=== PATIENT | female | born 1975 | race Caucasian/White ===

== ENCOUNTER 2019-03-21 06:30 | Day surgery (SDC) | payer OTHER ==
[~2019-03-21] VITALS: Ht 162.6 cm; Wt 72.1 kg
--- NOTE | ~2019-03-21 | OR ---
[facility] [address], [place] [address] Draft DATE OF OPERATION: 03/21/2019 SURGEON: Kashif Musa MD PREOPERATIVE DIAGNOSES: 1. 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 2. Chronic sinusitis. 3. Turbinate hypertrophy with nasal obstruction. PROCEDURES: 1. Tympanoplasty without ossicular reconstruction of the right ear. 2. Left limited ethmoidectomy 74566 or partial ethmoidectomy. 3. Submucous resection of the turbinate 22649-65. INDICATIONS: This 43-year-old has had sinus surgery in the past. 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 Both of these things were amenable to surgery as these scar bands would lateralize the middle turbinates and the patient also had hypertrophy of the inferior turbinates with recurrent nasal obstruction following her sinus surgery years ago. DESCRIPTION OF PROCEDURE: The patient was placed in the supine position, had an orotracheal intubation, was placed under general anesthesia. The right ear was marked in the preop area. Then, injecting the postauricular sulcus with about 5 mL of 1% lidocaine with 1:100,000 epinephrine that was also some injected into the meatus laterally of the ear. Then, after routine prep and drape using the microscope, another 1 or 2 mL was injected in the canal until blanching of the tympanic membrane was observed. Another 3 or 4 mL of 0.5% Marcaine with 1:200,000 epinephrine was placed in the postauricular sulcus to help with postop pain relief. Incision was then made with the needle cautery using both cutting and coagulation to incise down to the periosteum and the Butler 57 and 72 blades were used to make the incisions on the flap on the inside making a general configuration of the H with back elevation and then the postauricular dissection was carried into that pulling the ear forward with a Martha drain threaded in the ear canal, but out the postauricular incision. This was only the retraction the ear had, so that the tympanic membrane perforation could be well visualized. Temporalis fascia was harvested. PATIENT NAME: MARGARITA CORTEZ OPERATIVE REPORT DATE OF : 73 REPORT #: [id number] PHYSICIAN: KASHIF MUSA MD PCP: FAVIAN BELTRAN DO REPORT IS CONFIDENTIAL AND NOT TO BE RELEASED WITHOUT AUTHORIZATION [facility] [address], [place] [address] Draft Approximately, a 1.2 cm piece was harvested and this was pressed out and allowed to air dry. Then, the perforation was freshened with the Ascencio needle making punctures all the way around, removing the mucosa with cup forceps, then elevating the tympanomeatal flap with a separator and a #20 suction. A sickle knife was used to incise into the middle ear mucosa approximately 10 o'clock in the anatomic position. The annulus elevator was then used to lift the annulus out of its sulcus going inferiorly turning the tympanic membrane anteriorly. The ossicular reflex was present. The malleus appeared to be un-fibrosed and the SI joint moved as it should. Then, the graft was taken and threaded into the middle ear, pulling it anterior to the handle of the malleus out the perforation. Gelfoam soaked with Ciprodex placed into the perforation in the anteroinferior edge and then once the graft was pulled through, it was tucked back in between the Gelfoam and the medial surface of the tympanic membrane. This was done all the way around, more Gelfoam placed deep to that, so everything was held up against the medial surface of the tympanic membrane. The tympanomeatal flap was returned to its original position, packed into place with more Gelfoam, Ciprodex, and the ear was returned to its original position, 5-0 PDS used to sew it subcutaneously. Then, a running interlocking stitch of 5-0 fast absorbing gut was used. The Steri-Strips and Mastisol applied. The skin edge was returned as close as possible to the cut edge in the ear canal and a single piece of silastic sheeting was placed on that posterior edge, which will be retrieved in the office. More Gelfoam used and then a cotton ball loosely placed into the wali cavum soaked with bacitracin ointment. Mastoid dressing was then applied, and with the patient in the same position, nasal surgery proceeded. Injecting inferior middle turbinates with about 4 mL, 1 mL per each side of 1% lidocaine with 1:100,000 epinephrine, another 1 or 2 mL Marcaine was used to help with postop pain. Stab incisions were made into the inferior turbinates, lifting up the mucoperiosteum with the caudal dissection tool. The turbinate bone was then fractured, avulsed in piece by piece fashion removing from the airway. Photographs were taken endoscopically, preoperatively, intraoperatively, and postop as the Kerrison forceps was used to cut some of that lateral edge of the middle turbinate and the microdebrider and a Thru-Cut punch were used to remove scar bands, there were several present on either side. Some of the posterior ethmoids are remnant and the anterior ethmoids bone superiorly was removed with a Thru-Cut ethmoid punch and then after making sure everything was wide open, medializing the middle turbinates, NasoPore was placed on either side to help keep the bands were forming and re-lateralization of the middle turbinate. Estimated blood loss is 50 mL from the sinus surgery and the ear surgery may be even 1 mL. The patient went to recovery room in good condition. There were no complications. Kashif Musa MD PATIENT NAME: DANAMARGARITA OPERATIVE REPORT DATE OF : 73 REPORT #: [id number] PHYSICIAN: KASHIF MUSA MD PCP: FAVIAN BELTRAN DO REPORT IS CONFIDENTIAL AND NOT TO BE RELEASED WITHOUT AUTHORIZATION [facility] [address] [place] [address] Vance Tang [address] Draft [facility] /[id number] Copies: ~ PATIENT NAME: MARGARITA CORTEZ OPERATIVE REPORT DATE OF : 73 REPORT #: [id number] PHYSICIAN: KASHIF MUSA MD PCP: FAVIAN BELTRAN DO REPORT IS CONFIDENTIAL AND NOT TO BE RELEASED WITHOUT AUTHORIZATION
[~2019-03-21 06:30] MED LIST: PRISTIQ ER50 MG PO; SYNTHROID88 MCG PO
[2019-03-21] MEDS ORDERED: CLARITIN10 M2 PO (06:58)
[2019-03-21] MEDS ORDERED: MULTI VITAMIN1 EACH PO (06:58)
[2019-03-21] MEDS ORDERED: BENADRYL ALLERG25 MG PO (06:58)
[2019-03-21] MEDS ORDERED: MELATONIN5 M2 PO (06:58)
--- NOTE | 2019-03-21 08:01 | NUR ---
PATIENT RESTING BACK IN BED, LORA HUGGER PLACED ON WARM. CALL LIGHT WITHIN REACH. ANSWERED QUESTIONS AND CONCERNS. NO OTHER NEEDS AT THIS TIME.
--- NOTE | 2019-03-21 12:55 | NUR ---
03/21/19 1255 Sheets,Aby 1244 PT ARRIVED TO PACU NONAROUSABLE TO PAINFUL STIMULI, RESP EVEN AND UNLABORED BUT SHOLLOW. PT MAINTAINING OWN AIRWAY. 1245 VSS. 1253 O2 DECREASED TO 6L.
--- NOTE | 2019-03-21 15:34 | NUR ---
UPON ENTERING ROOM, HAD REMOVED GAUZE SATURATED WITH BLOOD AND WAS ATTEMPTING TO PLACE NEW GAUZE TO NOSE WITH TAPE. EDUCATED PATIENT AND FAMILY TO ALLOW NURSING TO CARE FOR GAUZE, TO CLOSELY MONITOR BLEEDING. REINFORCED WITH GAUZE. NEW GAUZE SATURATED WITHIN 5 MINUTES, DISCUSSED WITH CHARGE NURSE. APPLIED PRESSURE TO NOSE WITH NEW GAUZE, HELD PRESSURE AND BLEEDING APPEARS TO HAVE SLOWED. PROVIDED PATIENT WITH YANKER TO SUCK SECRETIONS FROM FRONT OF MOUTH WITH INSTRUCTION NOT TO GO PAST TEETH. PATIENT VERBALIZED UNDERSTANDING ALONG WITH . PATIENT HAS STOPPED ROCKING HEAD BACK AND FORTH WITH COUGHING UP SMALL AMOUNTS OF BLOOD. PATIENT STATES " THIS IS CALMING AND A GREAT DISTRACTION."
--- NOTE | 2019-03-21 16:18 | NUR ---
PATIENT RESTING BACK IN BED. PROVIDED WITH WARM BLANKET,AND ICE CHIPS. AT BEDSIDE. GAUZE APPEARS TO BE SATURATED WITH BLOOD, NO DRIPPING. REINFORECED WITH MORE GAUZE. PAIN CONTROLLED WITH TYLENOL3. RATES PAIN 3/10 ON PAIN SCALE. NO OTHER NEEDS AT THIS TIME. CALL LIGHT WITHIN REACH.
--- NOTE | 2019-03-21 16:30 | NUR ---
HOURLY ASSESSMENT COMPLETE. DRESSING UNDER NOSE CHANGED. SATURATED WITH MULTIPLE BLOOD CLOTS NOTED. VSS. DISCUSSED PAIN MANAGEMENT WITH PT AND SHE VERBALIZES IT IS TOLERABLE WHEN SHE DOESNT TOUCH IT. SUCTION YANKEUR AT BEDSIDE AND PT USES TO SPIT INTO . AT BEDSIDE. CALL LIGHT WITHIN REACH
--- NOTE | 2019-03-21 16:47 | NUR ---
TELPHONE CALL TO DR. LE. NOTIFIED OF AMOUNT OF BLEEDING, REPORTED PACU CHANGED GAUZE 4 TIMES TO NOSE, AND THEN SINCE BEING IN BACK TO DAYSURGERY NURSE HAS CHANGED 5 TIMES NOTING SATURATED GAUZE DRIPPING AND LARGE AMOUNTS OF CLOTS. DR. LE STATES " WEL SHE IS A GOOD CLOTTER, THIS SHOULD STOP BY TOMORROW NIGHT". VERBAL ORDER TO SPRAY AFRIN TO EACH NOSTRIL AND SEND BOTTLE HOME WITH PATIENT. PATIENT MAY DISCHARGE FROM DAYSURGERY HOME.
== END 2019-03-21 17:50 | disposition home or self-care (01) ==
LOC: OPS 06:30 → DS 06:30 → OPS 09:00
PROVIDERS: Otolaryngology
PROC: 09BV8ZZ Excision of Left Ethmoid Sinus, Via Natural or Artificial Opening Endoscopic (ICD-10-PCS; 2019-03-21)
PROC: 09Q70ZZ Repair Right Tympanic Membrane, Open Approach (ICD-10-PCS; principal; 2019-03-21 09:00)
PROC: 09TL7ZZ Resection of Nasal Turbinate, Via Natural or Artificial Opening (ICD-10-PCS; 2019-03-21 09:00)
PROC: 09SL7ZZ Reposition Nasal Turbinate, Via Natural or Artificial Opening (ICD-10-PCS; 2019-03-21 09:00)
DX: H90.2 Conductive hearing loss, unspecified (principal); J32.9 Chronic sinusitis, unspecified; J34.3 Hypertrophy of nasal turbinates; J34.89 Other specified disorders of nose and nasal sinuses; F41.9 Anxiety disorder, unspecified; H72.91 Unspecified perforation of tympanic membrane, right ear; Z88.2 Allergy status to sulfonamides; Z88.1 Allergy status to other antibiotic agents; Z79.899 Other long term (current) drug therapy
CPT/HCPCS: J0131; J0330; J1100; J1885; J2250; J2405; J2704; J3475